=== PATIENT | male | born 1985 | race Caucasian/White ===

== ENCOUNTER 2024-11-03 22:26 | Emergency (ER) | payer BC ==
[~2024-11-03] VITALS: Ht 170.2 cm; Wt 79.0 kg
[2024-11-03 22:51] VITALS: O2SAT 98
[2024-11-04] MEDS ORDERED: GUAI600T26 MT (00:14)
[2024-11-04] MEDS ORDERED: ALBU18HF2 IH (00:14)
[2024-11-04] MEDS ORDERED: AMOX1TAB16 MT (00:14)
[2024-11-04] MEDS ORDERED: DOXY-461 MT (00:14)
[2024-11-04 00:29] LABS: BASOPHILS % 0.5 % (0.0-2.0); EOSINOPHILS % 2.1 % (0.0-5.0); HEMATOCRIT. 42.6 % (42.0-52.0); HEMOGLOBIN. 14.5 g/dL (14.0-18.0); LYMPHOCYTES % 21.1 % (20.0-50.0); MEAN CORPUSCULAR HEMOGLOBIN 28.5 pg (28.0-32.0); MEAN CORPUSCULAR VOLUME 83.7 fL (80.0-94.0); MEAN PLATELET VOLUME 7.8 fl (7.4-10.4); MONOCYTES % 8.1 % (2.0-8.0); NEUTROPHILS % 68.2 % (40.0-76.0); PLATELET 226 x1000/uL (130-400); RED BLOOD CELL COUNT 5.09 mill/uL (4.7-6.1); RED CELL DISTRIBUTION WIDTH 12.9 % (11.6-14.6); WHITE BLOOD COUNT 8.1 x1000/uL (4.5-11.0)
[2024-11-04 00:30] LABS: CHLORIDE 104 mEq/L (98-107); POTASSIUM 3.5 mEq/L (3.5-5.1); SODIUM 141 mEq/L (136-145)
[2024-11-04 00:31] LABS: CALCIUM 9.5 mg/dL (8.7-10.4); CARBON DIOXIDE 30 mEq/L (21-32)
[2024-11-04 00:36] LABS: GLUCOSE 93 mg/dL (70-105); UREA NITROGEN BLOOD 14 mg/dL (9-23)
[2024-11-04 01:15] VITALS: BP 123/79; PULSE 68; RESP 18; TEMP 36.5; O2SAT 97
== END 2024-11-04 01:17 | disposition home or self-care (01) ==
LOC: ER 22:26
DX: J18.9 Pneumonia, unspecified organism (principal); Z79.899 Other long term (current) drug therapy
CPT/HCPCS: 36415; 71045; 80048; 85025; 99284

== ENCOUNTER 2024-11-29 18:57 | Emergency (ER) | payer BC ==
[~2024-11-29] VITALS: Ht 172.7 cm; Wt 78.0 kg
[~2024-11-29 18:57] MED LIST: ALBU18HF2 IH; AMOX1TAB16 MT; DOXY-461 MT; GUAI600T26 MT
[2024-11-29 19:25] VITALS: TEMP 36.8; O2SAT 99
[2024-11-29 19:27] VITALS: O2SAT 99
[2024-11-29 22:40] LABS: BASOPHILS % 0.8 % (0.0-2.0); EOSINOPHILS % 2.5 % (0.0-5.0); HEMATOCRIT. 42.2 % (42.0-52.0); HEMOGLOBIN. 14.6 g/dL (14.0-18.0); LYMPHOCYTES % 31.4 % (20.0-50.0); MEAN PLATELET VOLUME 8.2 fl (7.4-10.4); MONOCYTES % 6.4 % (2.0-8.0); NEUTROPHILS % 58.9 % (40.0-76.0); PLATELET 217 x1000/uL (130-400); RED BLOOD CELL COUNT 5.10 mill/uL (4.7-6.1); RED CELL DISTRIBUTION WIDTH 13.4 % (11.6-14.6)
[2024-11-29 22:49] VITALS: BP 119/78; PULSE 117; RESP 18
[2024-11-29] MEDS: KETOROLAC 30MG/ML VIAL IM ONE (22:49)
[2024-11-29] MEDS: DEXAMETHASONE 4MG TABLET PO ONE (22:50)
[2024-11-29 23:02] LABS: CREATININE 1.2 mg/dL (0.6-1.3); UREA NITROGEN BLOOD 12 mg/dL (9-23)
[2024-11-30] MEDS ORDERED: IBUP-2029 MT (00:01)
[2024-11-30] MEDS ORDERED: FLUT15.844 BOTHNSTRLS (00:01)
[2024-11-30] MEDS ORDERED: SODI90SP BOTHNSTRLS (00:01)
[2024-11-30] MEDS ORDERED: ALBU18HF2 IH (00:02)
[2024-11-30] MEDS ORDERED: AZIT250T12 MT (19:09)
[2024-11-30] MEDS ORDERED: AMOX1TAB16 MT (19:09)
== END 2024-11-30 01:11 | disposition home or self-care (01) ==
LOC: ER 18:57
DX: J18.9 Pneumonia, unspecified organism (principal); Z79.899 Other long term (current) drug therapy
CPT/HCPCS: 99284; 71045; 80048; 87430; 85025; 87070; 36415; 96372; J1885; J8540